=== PATIENT | female | born 1980 | race Caucasian/White ===

== ENCOUNTER 2020-08-08 09:45 | Emergency (ER) | payer OTHER, SELFPAY ==
[2020-08-08 09:58] VITALS: BP 121/85; PULSE 84; RESP 16; TEMP 36.8; O2SAT 96; BMI 37.1
--- NOTE | 2020-08-08 10:11 | ED.HA ---
HPI - Headache General Chief Complaint: Headache Stated Complaint: migraine for 4 days Time Seen by Provider: 08/08/20 10:06 Source: patient Mode of arrival: ambulatory Limitations: no limitations History of Present Illness HPI Narrative: 39 y/o female with history of migraines presenting with 5 days of migraine headache. She states she has been taking her sumatriptain without improvement. She is now nauseated and vomiting from the pain. She has had headaches this severe in the past but not for a few years. She reports photophobia and sensitivity to sound. She had an aura prior to it starting. She reports mild dizziness intermittently. She walks with a steady gait. MD elicited complaint: migraine Pertinent past history: migraines Onset (ago): day(s) (5) Onset description: gradually Location: right and frontal Severity: severe Quality & Timing: aching and constant Exacerbating factors: exertion, light and noise Relieving factors: dark room Context: occurred with exertion/activity Associated symptoms: nausea and vomiting Treatments prior to arrival: none Related Data Previous Rx's Medication Instructions Recorded [id number]-zdksunttiipyh-[id number] 1 cap PO Q4-6H PRN #20 cap 08/08/20 [Fioricet] ondansetron HCl [Zofran] 4 mg PO Q8H PRN #14 tab 08/08/20 Allergies Allergy/AdvReac Type Severity Reaction Status Date / Time No Known Allergies Allergy Unverified 07/07/20 17:34 [No Known Allergies*] Review of Systems Review of Systems: Constitutional: No Fever, + Chills ENT/Mouth: No sore throat, No Rhinorrhea, No Swallowing Difficulty Eyes: + right Eye Pain, No Swelling, No Redness Cardiovascular: No Chest Pain, No SOB, No Orthopnea, No Edema Respiratory: No Cough, No Sputum, No Wheezing, No dyspnea Gastrointestinal: + Nausea, + Vomiting, No Diarrhea, No abdominal Pain Genitourinary: No Dysuria, No Urinary Frequency, No Hematuria Musculoskeletal: No joint pain, No Myalgias Skin: No Skin Lesions, No rash Neuro: No Weakness, No Numbness, + Dizziness, + Headache Psych: No Anxiety/Panic, No Depression Heme/Lymph: No Bruising, No Lymphadenopathy Endocrine: No Polyuria, No Polydipsia PMFSH Past Medical History Attestation statement: The following information was validated with the patient. Medical History Diabetes Migraine Surgical History (Updated 08/08/20 @ 10:02 by Dee Anderson) Hx of cholecystectomy Social History Social History Alcohol intake: never Smoking Status: Never smoker Use of substances other than those prescribed or required for medical reasons: No Advance Directives: No Advance Directives Information Provided: No Physical Exam Vital Signs: Vital Signs: Vital Signs Temp Pulse Resp BP Pulse Ox 08/08/20 12:15 83 16 96/65 98 08/08/20 09:58 98.3 F 84 16 121/85 96 Body Mass Index 37.1 Appearance: Alert. Oriented X3. appears in pain. Eyes: Pupils equal, round and reactive to light. ENT: Pharynx normal. Neck: Normal inspection. Neck supple. CVS: Normal heart rate and rhythm. Pulses normal. Respiratory: No respiratory distress. Breath sounds normal. Abdomen: Soft and nontender. obese. +BS x4 Skin: Skin warm and dry. Normal skin color. Normal skin turgor. No rashes. Extremities: No lower extremity edema. Neuro: Oriented X 3. No motor deficit. No sensory deficit. Course Course Course Narrative: 39 y/o here with migraine headache associated with N/V. Will give toradol, benaryl and reglan. She has gotten these medications before per her report with improvement in her headache. Neuro exam is intact. Low suspicion for ICH, CVA, tumor. Will reassess after medicated. Reevaluation(s) Reevaluation #1: headache improved. continues to report some nausea. Zofran ordered. Reevaluation #2: patient feels improved. stable for discharge. MDM - Headache Differential Diagnosis Differential diagnosis: Likely migraine, tension headache, headache and sinusitis Medical Records Attestation: I reviewed the patient's medical records. Discharge Plan Discharge Clinical Impression: Migraine Qualifiers: Migraine type: with aura Status migrainosus presence: with status migrainosus Intractability: not intractable Qualified Code(s): G43.101 - Migraine with aura, not intractable, with status migrainosus Patient Disposition: Home, Self-Care Instructions: Migraine Headache (ED) Additional Instructions: Avoid bright light and noise, minimize screen time. Stay hydrated. If your headache worsens come back to the ER for further evaluation. Follow up with your Primary Care Doctor this week. Recommend follow up with Neurologist or Headache Specialist if no improvement. Prescriptions: New ondansetron HCl [Zofran] 4 mg tablet 4 mg PO Q8H PRN (Reason: nausea and vomiting) Qty: 14 RF: 0 [id number]-tibocchxmxyes-feij [Fioricet] 50-300-40 mg capsule 1 cap PO Q4-6H PRN (Reason: headache ) Qty: 20 RF: 0 Referrals: Seven Lebron MD [Physician] - 2 days
[2020-08-08] MEDS: 0.9 % Sodium Chloride 1,000 ML 999 ML IVCONT (10:38)
[2020-08-08] MEDS: Metoclopramide HCl 10 MG/2 ML VIAL IVPUSH (10:39)
[2020-08-08] MEDS: Ketorolac Tromethamine 30 MG/ML VIAL IVPUSH (10:39)
[2020-08-08] MEDS: diphenhydrAMINE HCL 50 MG/ML VIAL 25 MG IVPUSH (10:39)
--- NOTE | 2020-08-08 10:42 | PC.NURSE ---
PT MEDICATED FOR HER HEADACHE PER MD ORDERS, PAIN AT 9/10, LIGHT SENSITIVITY, LIGHTS OFF IN THE ROOM AT THIS TIME, ALL NURO INTACT
--- NOTE | 2020-08-08 11:30 | PC.NURSE ---
PT REPORTS THAT HER HEADACHE IMPROVED PAIN AT 5/10 BUT STILL HAVING SOME NAUSEA
[2020-08-08] MEDS: ondansetron HCL 4 MG/2 ML VIAL IVPUSH (12:14)
[2020-08-08 12:15] VITALS: BP 96/65; PULSE 83; RESP 16; O2SAT 98
== END 2020-08-08 13:09 | disposition home or self-care (01) ==
PROVIDERS: Emergency Provider Emergency Medicine
DX: G43.101 Migraine with aura, not intractable, with status migrainosus (principal); Z79.899 Other long term (current) drug therapy
CPT/HCPCS: 96361; 96374; 96375; 99284; J1200; J1885; J2405; J2765

== ENCOUNTER 2020-10-24 10:09 | Outpatient (REF) | payer OTHER, SELFPAY | END 2020-10-24 10:10 | disposition home or self-care (01) | LOC: HO.LAB 10:09 | PROVIDERS: Visit Provider Internal Medicine | DX: Z20.828 Contact with and (suspected) exposure to other viral communicable diseases (principal) | CPT/HCPCS: 36415; C9803; U0003 ==

== ENCOUNTER 2021-05-19 08:32 | Emergency (ER) | payer OTHER, SELFPAY ==
[2021-05-19 08:40] VITALS: BP 129/87; PULSE 76; RESP 20; TEMP 35.5; O2SAT 98; BMI 37.9
--- NOTE | 2021-05-19 09:27 | ED.HA ---
HPI - Headache General Chief Complaint: Headache Stated Complaint: headache Time Seen by Provider: 05/19/21 09:21 Source: patient Mode of arrival: ambulatory Limitations: no limitations History of Present Illness HPI Narrative: Patient comes emergency room complaining of a migraine headache that has been present for 5 days. Patient states she has tried Fioricet, Excedrin, Tylenol with no relief. Patient also complaining of nausea, no vomiting or diarrhea. Patient states that she has been under a lot of stress, states she lost her son 2 months ago. Patient denies any visual changes or neurological deficits Related Data Previous Rx's Medication Instructions Recorded zqfsckpblh-zdtlxyeljaedy-uqywkrae 1 cap PO Q4-6H PRN #20 cap 08/08/20 50 mg-300 mg-40 mg capsule (Fioricet) ondansetron HCl 4 mg tablet 4 mg PO Q8H PRN #14 tab 08/08/20 (Zofran) ketorolac 10 mg tablet 10 mg PO TID PRN 5 Days #7 tab 05/19/21 ondansetron HCl 4 mg tablet 4 mg PO Q6H PRN #10 tab 05/19/21 (Zofran) sumatriptan succinate 50 mg tablet 50 mg PO Q2-4H PRN #10 tab 05/19/21 Allergies Allergy/AdvReac Type Severity Reaction Status Date / Time No Known Allergies Allergy Unverified 07/07/20 17:34 [No Known Allergies*] Review of Systems Review of Systems: Constitutional : No Weight loss, No Fever, No Chills, No Night Sweats, No Fatigue, No Malaise ENT/Mouth : No Hearing loss, No Ear Pain, No Nasal Congestion, No Sinus Pain, No Hoarseness, No sore throat, No Rhinorrhea, No Swallowing Difficulty Eyes: No Eye Pain, No Swelling, No Redness, No Foreign Body, No Discharge, No Vision Changes Cardiovascular : No Chest Pain, No SOB, No Dyspnea on Exertion, No Orthopnea, No Edema, No Palpitations Respiratory : No Cough, No Sputum, No Wheezing, No Smoke Exposure, No Dyspnea Gastrointestinal : No Nausea, No Vomiting, No Diarrhea, No Constipation, No abdominal Pain, No Hematochezia, No Melena Genitourinary : no irregular bleeding, No Dysuria, No Urinary Frequency, No Hematuria, No Urinary Incontinence, No Urgency, No Flank Pain, No Urinary Flow Changes, No Hesitancy Musculoskeletal : No joint pain, No Myalgias, No Joint Swelling Skin : No Skin Lesions, No rash Neuro : No Weakness, No Numbness, No Paresthesias, No Loss of Consciousness, No Dizziness, complaining of a constant migraine headache Psych : No Anxiety/Panic, No Depression, No SI/HI/AH/VH, No Social Issues, Heme/Lymph: No Bruising, No Bleeding,No Lymphadenopathy Endocrine : No Polyuria, No Polydipsia, No Temperature Intolerance [facility] Past Medical History Medical History Diabetes Migraine Surgical History Hx of cholecystectomy Social History Social History Alcohol intake: never Smoked in Last 30 Days: No Use of substances other than those prescribed or required for medical reasons: No Advance Directives: No Advance Directives Information Provided: No Physical Exam Vital Signs: Vital Signs: Last Vital Signs Temp 95.9 F L 05/19/21 08:40 Pulse 76 05/19/21 08:40 Resp 20 05/19/21 08:40 BP 129/87 05/19/21 08:40 Pulse Ox 98 05/19/21 08:40 Body Mass Index 37.9 Const: Other: Appearance: Alert. Oriented X3. No acute distress. Eyes: Pupils equal, round and reactive to light. Does not seem to have photophobia ENT: Pharynx normal. Neck: Normal inspection. Neck supple. No lymph nodes noted. No crepitus CVS: Normal heart rate and rhythm. Pulses normal. Normal S1 and S2 Respiratory: No respiratory distress. Breath sounds normal. No Wheezing. No rales Abdomen: Soft and nontender. No rigidity. No distention. Skin: Skin warm and dry. Normal skin color. Normal skin turgor. Extremities: No lower extremity edema. No Lacerations. No Rash Neuro: Oriented X 3. No motor deficit. No sensory deficit. Moving all extermities. No slurred speech. Ambulatory, steady gait. Course Course Course Narrative: Patient states that the headache is improving. No longer nauseous. States she has residual headache but overall feeling much better. Patient requesting a prescription of sumatriptan, run out of her medication yesterday. Patient declined 1 dose of sumatriptan here, states it makes her very sleepy. Discharge Plan Discharge Clinical Impression: Migraine Qualifiers: Migraine type: unspecified Status migrainosus presence: without status migrainosus Intractability: not intractable Qualified Code(s): G43.909 - Migraine, unspecified, not intractable, without status migrainosus Patient Disposition: Home, Self-Care Instructions: Migraine Headache (ED) Additional Instructions: Please follow-up with your primary care physician tomorrow. If you have any worsening or new symptoms, please return to the emergency room or call 911 Prescriptions: New sumatriptan succinate 50 mg tablet 50 mg PO Q2-4H PRN (Reason: migraine headache) Qty: 10 RF: 0 ketorolac 10 mg tablet 10 mg PO TID PRN (Reason: pain) 5 Days Qty: 7 RF: 0 ondansetron HCl [Zofran] 4 mg tablet 4 mg PO Q6H PRN (Reason: nausea and vomiting) Qty: 10 RF: 0 No Action ondansetron HCl [Zofran] 4 mg tablet 4 mg PO Q8H PRN (Reason: nausea and vomiting) Qty: 14 RF: 0 fpcfhqgyvc-znsgozkgixgmw-oyoo [Fioricet] 50-300-40 mg capsule 1 cap PO Q4-6H PRN (Reason: headache ) Qty: 20 RF: 0
[2021-05-19] MEDS: 0.9 % Sodium Chloride 1,000 ML 999 ML IVCONT (09:45)
[2021-05-19] MEDS: Metoclopramide HCl 10 MG/2 ML VIAL IVPUSH (09:45)
[2021-05-19] MEDS: diphenhydrAMINE HCL 50 MG/ML VIAL IVPUSH (09:45)
[2021-05-19] MEDS: Ketorolac Tromethamine 15 MG/ML VIAL 30 MG IVPUSH (09:45)
== END 2021-05-19 10:49 | disposition home or self-care (01) ==
PROVIDERS: Emergency Provider Emergency Medicine; PCP Internal Medicine
DX: G43.909 Migraine, unspecified, not intractable, without status migrainosus (principal); E11.9 Type 2 diabetes mellitus without complications; Z72.89 Other problems related to lifestyle; Z63.4 Disappearance and death of family member
CPT/HCPCS: 96361; 96374; 96375; 99284; J1200; J1885; J2765

== ENCOUNTER 2022-10-29 09:35 | Emergency (ER) | payer OTHER, SELFPAY ==
[2022-10-29 09:39] VITALS: BP 143/94; PULSE 97; RESP 18; TEMP 36.6; O2SAT 97; BMI 38.0
--- NOTE | 2022-10-29 10:46 | PC.NURSE ---
41 y/o F c/o migraine, nausea, and vomitting. pt states she has also not been able to maintain her blood sugar. pt is aox3, calm and cooperative, VSS at this time. awaiting MD archibald
[2022-10-29 10:47] VITALS: BP 133/82; PULSE 97; RESP 16; TEMP 37.7; O2SAT 96
[2022-10-29 10:53] LABS: Glucose, Whole Blood 101 mg/dL (60-115)
--- NOTE | 2022-10-29 11:47 | ECG_ITS ---
Test Reason : HEADACHE/NAUSEA Blood Pressure : / mmHG Vent. Rate : 092 BPM Atrial Rate : 092 BPM P-R Int : 166 ms QRS Dur : 084 ms QT Int : 402 ms P-R-T Axes : 030 054 036 degrees QTc Int : 497 ms Normal sinus rhythm Prolonged QT Abnormal ECG No previous ECGs available Referred By: Manan Grewal Electronically Signed By:Sohail Aaron
--- NOTE | 2022-10-29 11:49 | ED_ITS ---
HPI - General Adult General Chief complaint: Nausea/Vomiting/Diarrhea Stated complaint: Migraine/Low blood sugar Time Seen by Provider: 10/29/22 11:33 Source: patient Mode of arrival: ambulatory Limitations: no limitations History of Present Illness HPI narrative: 41-year-old with history of migraine presents to ED for headache, nausea, and vomitting. Patient states no relief with a migraine medication. Patient denies any abdominal pain, dysuria, hematuria, vaginal discharge, or vaginal bleeding. Patient states her glucose has been low. Patient history of diabetes and baseline her glucose is around 156. Patient states due to her having continuous vomiting from the migraine and unable to keep fluids and food down her glucose will drop to 90s. Patient denies having any seizure. Patient denies any chest pain or shortness of breath Related Data Previous Rx's Medication Instructions Recorded sjtzsderxd-onpjvkuvkqdvn-ldeuneyx 1 cap PO Q4-6H PRN headache #20 08/08/20 50 mg-300 mg-40 mg capsule caps (Fioricet) ondansetron HCl 4 mg tablet 4 mg PO Q8H PRN nausea and 08/08/20 (Zofran) vomiting #14 tabs ketorolac 10 mg tablet 10 mg PO TID PRN pain 5 days #7 05/19/21 tabs ondansetron HCl 4 mg tablet 4 mg PO Q6H PRN nausea and 05/19/21 (Zofran) vomiting #10 tabs sumatriptan succinate 50 mg tablet 50 mg PO Q2-4H PRN migraine 05/19/21 headache #10 tabs zolmitriptan 2.5 mg tablet (Zomig) 2.5 mg PO Q2-4H PRN migraine 05/19/21 headache #10 tabs yjuhfvmxwt-kjyxsjtalhted-shblpqxe 1 cap PO Q6H PRN pain 5 days #20 10/29/22 50 mg-300 mg-40 mg capsule caps (Fioricet) ketorolac 10 mg tablet 10 mg PO QID PRN pain 5 days #20 10/29/22 tabs metoclopramide HCl 10 mg tablet 10 mg PO Q6H PRN nausea and 10/29/22 (Reglan) vomiting 4 days #12 tabs Allergies Allergy/AdvReac Type Severity Reaction Status Date / Time No Known Allergies Allergy Unverified 07/07/20 17:34 [No Known Allergies*] Review of Systems Review of Systems: Migraine exacerbation. Yes all other systems are reviewed and are negative [facility] Past Medical History Medical History Diabetes Migraine Surgical History Hx of cholecystectomy Social History Social History Alcohol intake: never Smoked in Last 30 Days: No Advance Directives: Yes Advance Directives on File: No Physical Exam ED Vital Signs: Vital Signs - 24 hr 10/29/22 09:39 10/29/22 10:47 10/29/22 15:07 Temperature 98 F 99.8 F 98.1 F Pulse Rate 97 97 86 Respiratory Rate 18 16 17 Blood Pressure 143/94 H 133/82 106/56 L Pulse Oximetry 97 96 98 Oxygen Delivery Method Room Air Room Air Room Air 10/29/22 16:35 Temperature Pulse Rate 92 Respiratory Rate 12 Blood Pressure 99/68 Pulse Oximetry 98 Oxygen Delivery Method Room Air BMI result Body Mass Index 38.0 Const General: cooperative, healthy appearing, comfortable, no acute distress, well developed, alert and awake Orientation/consciousness: oriented to person, oriented to place, oriented to time and patient oriented x3 HENMT Head: Yes normal to inspection, Yes No palpable skull fracture present, Yes normocephalic, Yes atraumatic and No abrasion Eyes Other: Positive photophobia General: appearance normal, both eyes and all related structures Neck Neck: Yes normal visual inspection, Yes full ROM, Yes no lymphadenopathy, Yes no meningeal signs, Yes trachea midline, Yes supple, No anterior neck swelling and No tender Chest Chest palpation & inspection: normal inspection of the chest and normal palpation of entire chest wall Resp Effort & Inspection: normal respiratory effort and able to speak in complete sentences Auscultation: clear to auscultation bilaterally Cardio Jugular venous distension: no JVD Heart sounds: S1 normal heart sound present and S2 normal heart sound present GI Inspection: Yes normal to inspection and No abdominal wall ecchymosis Palpation (GI): Soft to palpation, not firm, nontender, no guarding and not rigid General: No CVA tenderness and Yes no CVA tenderness Back/Spine/Pelvis Back: no CVA tenderness, No CVA tenderness and No back tenderness Skin General skin exam: no rashes or lesions noted and elasticity normal Neuro Other: Negative for any neuro deficits. General: oriented to person, oriented to place, oriented to time, patient oriented x3, gait normal, tone normal, moves all extremities, Normal light touch and pain sensation, no meningeal signs, no focal motor deficits, CN's II-XI intact bilaterally and normal sensation to monofilament Extrem General: Yes normal to inspection and Yes full ROM Psych Appearance: grossly normal, well kempt and not disheveled Course Course Course Narrative: History physical exam indicate more migraine pain due to patient did states she is diabetic and over 40 will do Stuart EKG cardiac labs such as troponin. Negative for meningeal signs. Will order migraine IV cocktail with fluids for Reevaluation(s) Reevaluation #1: EKG negative STEMI. Troponin negative after having symptoms since Saturday. No need for head CT scan patient states having her usual migraine exacerbation and no new trauma or any neuro deficits. Not suspecting meningitis patient does not have any neck stiffness or any other meningeal sign. Not suspecting brain mass or bleeding. Patient denies blood thinners. no trauma or neuro deficits. Pending magnesium due to QTC 497. Patient states she feels better and no longer have photophobia/headache and is eating food. Patient given Decadron, Toradol, Reglan, similar triptans, and Fioricet. Glucose stayed stable throughout ED visit Time: 16:09 Reevaluation #2: magneisum normal Medications Administered Discontinued Medications Generic Name Dose Route Start Last Admin Trade Name Freq PRN Reason Stop Dose Admin Acetaminophen/Butalbital/Caffeine 2 tab 10/29/22 14:02 10/29/22 14:15 Butalb/Acetamin/Caff 50/325/40 Tablet PO 10/29/22 14:03 2 tab ONCE ONE Administration Dexamethasone Sodium Phosphate 10 mg 10/29/22 14:02 10/29/22 14:16 Dexamethasone Sod Phosphate 10 Mg/Ml Vial IVPUSH 10/29/22 14:03 10 mg ONCE ONE Administration Diphenhydramine HCl 50 mg 10/29/22 11:45 10/29/22 12:02 Diphenhydramine Hcl 50 Mg/Ml Vial IVPUSH 10/29/22 11:46 50 mg ONCE ONE Administration Sodium Chloride 1,000 mls @ 999 mls/hr 10/29/22 11:45 10/29/22 12:13 Ns IV 10/29/22 12:45 Infused .Q1H1M STA Infusion Ketorolac Tromethamine 30 mg 10/29/22 11:45 10/29/22 12:02 Ketorolac Tromethamine 30 Mg/Ml Vial IVPUSH 10/29/22 11:46 30 mg ONCE ONE Administration Metoclopramide HCl 10 mg 10/29/22 11:45 10/29/22 12:02 Metoclopramide Hcl 10 Mg/2 Ml Vial IVPUSH 10/29/22 11:46 10 mg ONCE ONE Administration Sumatriptan Succinate 6 mg 10/29/22 14:04 10/29/22 14:15 Sumatriptan Succinate 6 Mg/0.5 Ml Vial SUBCUT 10/29/22 14:05 6 mg ONCE ONE Administration Medical Decision Making Medical Decision Making [facility] Narrative: 41-year-old female with migraine exacerbation described headache, nausea, vomiting, and photophobia. Negative for neck stiffness fever, or chills. Negative for any new trauma. Due to patient being diabetic and H will do cardiac evaluation. Differential Diagnosis Differential Diagnoses: The differential diagnosis associated with the presentation includes (Cardiac, migraine exacerbation) Admission/Observation If patient worsens her med medical admission for today patient will be observed or admitted. Recently no admission needed Consult Healthcare Provider No further consultation needed. Lab Data [facility] Lab Attestation statement: I reviewed the patient's lab results. 10/29/22 12:05 10/29/22 12:05 Labs: Lab Results 10/29/22 10/29/22 10/29/22 Range/Units 10:50 12:05 12:05 WBC 10.5 (4.8-10.8) X10*3/uL RBC 5.52 H (4.20-5.50) X10*6/uL Hgb 16.1 H (12.0-16.0) g/dl Hct 46.7 (37.0-47.0) % MCV 84.6 (80.0-98.0) fL MCH 29.2 (27.0-33.0) pg MCHC 34.5 (31.0-35.0) g/dl RDW 12.3 (11.0-16.0) % Plt Count 406 H (160-400) X10*3/uL MPV 9.1 L (9.4-12.3) fL Immature Gran % (Auto) 0.2 (0.0-0.4) % Neut % (Auto) 76.0 H (45-73) % Lymph % (Auto) 16.8 L (20-40) % Winston % (Auto) 5.6 (2-11) % Eos % (Auto) 1.1 (0-4) % Baso % (Auto) 0.3 (0-2) % Lymph # (Auto) 1.8 (1.2-4.9) X10*3/uL Winston # (Auto) 0.6 (0.1-1.2) X10*3/uL Eos # (Auto) 0.1 (0.0-0.4) X10*3/uL Baso # (Auto) 0.0 (0.0-0.2) X10*3/uL Abs Immat Gran (auto) 0.02 (0.00-0.03) X10*3/uL Absolute Neuts (auto) 7.9 (2.0-8.3) x10*3/uL Absolute Nucleated RBC 0.000 (0.0-0.012) X10*3/uL Nucleated RBC % (auto) 0.0 (0.0-0.2) /100WBC PT (10.0-13.1) SEC INR (0.9-1.1) APTT (26.0-36.4) SEC Sodium (135-145) mmol/L Potassium (3.3-5.1) mmol/L Chloride (96-108) mmol/L Carbon Dioxide (22-29) mmol/L Anion Gap (12-20) BUN (9-16) mg/dL Creatinine (0.5-1.4) mg/dL Estim Creat Clear Calc Estimated GFR POC Glucose 101 (60-115) mg/dL Random Glucose (60-115) mg/dL Calcium (8.4-10.2) mg/dL Magnesium (1.6-2.6) mg/dL Total Bilirubin (0.0-1.0) mg/dL AST (5-31) U/L ALT (0-31) U/L Alkaline Phosphatase (39-117) U/L Troponin I High Sens (<3.5-17.0) ng/L Total Protein (6.5-8.0) g/dL Albumin (3.5-5.0) g/dL Influenza Type A (PCR) NEGATIVE (Negative) Influenza Type B (PCR) NEGATIVE (Negative) RSV RNA Qual (PCR) NEGATIVE (Negative) SARS-CoV-2 RNA (RT-PCR) NEGATIVE (Negative) 10/29/22 10/29/22 10/29/22 Range/Units 12:05 12:05 12:05 WBC (4.8-10.8) X10*3/uL RBC (4.20-5.50) X10*6/uL Hgb (12.0-16.0) g/dl Hct (37.0-47.0) % MCV (80.0-98.0) fL MCH (27.0-33.0) pg MCHC (31.0-35.0) g/dl RDW (11.0-16.0) % Plt Count (160-400) X10*3/uL MPV (9.4-12.3) fL Immature Gran % (Auto) (0.0-0.4) % Neut % (Auto) (45-73) % Lymph % (Auto) (20-40) % Winston % (Auto) (2-11) % Eos % (Auto) (0-4) % Baso % (Auto) (0-2) % Lymph # (Auto) (1.2-4.9) X10*3/uL Winston # (Auto) (0.1-1.2) X10*3/uL Eos # (Auto) (0.0-0.4) X10*3/uL Baso # (Auto) (0.0-0.2) X10*3/uL Abs Immat Gran (auto) (0.00-0.03) X10*3/uL Absolute Neuts (auto) (2.0-8.3) x10*3/uL Absolute Nucleated RBC (0.0-0.012) X10*3/uL Nucleated RBC % (auto) (0.0-0.2) /100WBC PT 12.8 (10.0-13.1) SEC INR 1.1 (0.9-1.1) APTT 34.8 (26.0-36.4) SEC Sodium 137 (135-145) mmol/L Potassium 3.3 (3.3-5.1) mmol/L Chloride 109 H (96-108) mmol/L Carbon Dioxide 19 L (22-29) mmol/L Anion Gap 12 (12-20) BUN 11 (9-16) mg/dL Creatinine 0.61 (0.5-1.4) mg/dL Estim Creat Clear Calc 150.2 Estimated GFR > 60 POC Glucose (60-115) mg/dL Random Glucose 81 (60-115) mg/dL Calcium 8.3 L (8.4-10.2) mg/dL Magnesium 2.2 (1.6-2.6) mg/dL Total Bilirubin 2.1 H (0.0-1.0) mg/dL AST 18 (5-31) U/L ALT 20 (0-31) U/L Alkaline Phosphatase 66 (39-117) U/L Troponin I High Sens < 3.5 (<3.5-17.0) ng/L Total Protein 6.5 (6.5-8.0) g/dL Albumin 4.0 (3.5-5.0) g/dL Influenza Type A (PCR) (Negative) Influenza Type B (PCR) (Negative) RSV RNA Qual (PCR) (Negative) SARS-CoV-2 RNA (RT-PCR) (Negative) 10/29/22 Range/Units 14:26 WBC (4.8-10.8) X10*3/uL RBC (4.20-5.50) X10*6/uL Hgb (12.0-16.0) g/dl Hct (37.0-47.0) % MCV (80.0-98.0) fL MCH (27.0-33.0) pg MCHC (31.0-35.0) g/dl RDW (11.0-16.0) % Plt Count (160-400) X10*3/uL MPV (9.4-12.3) fL Immature Gran % (Auto) (0.0-0.4) % Neut % (Auto) (45-73) % Lymph % (Auto) (20-40) % Winston % (Auto) (2-11) % Eos % (Auto) (0-4) % Baso % (Auto) (0-2) % Lymph # (Auto) (1.2-4.9) X10*3/uL Winston # (Auto) (0.1-1.2) X10*3/uL Eos # (Auto) (0.0-0.4) X10*3/uL Baso # (Auto) (0.0-0.2) X10*3/uL Abs Immat Gran (auto) (0.00-0.03) X10*3/uL Absolute Neuts (auto) (2.0-8.3) x10*3/uL Absolute Nucleated RBC (0.0-0.012) X10*3/uL Nucleated RBC % (auto) (0.0-0.2) /100WBC PT (10.0-13.1) SEC INR (0.9-1.1) APTT (26.0-36.4) SEC Sodium (135-145) mmol/L Potassium (3.3-5.1) mmol/L Chloride (96-108) mmol/L Carbon Dioxide (22-29) mmol/L Anion Gap (12-20) BUN (9-16) mg/dL Creatinine (0.5-1.4) mg/dL Estim Creat Clear Calc Estimated GFR POC Glucose 70 (60-115) mg/dL Random Glucose (60-115) mg/dL Calcium (8.4-10.2) mg/dL Magnesium (1.6-2.6) mg/dL Total Bilirubin (0.0-1.0) mg/dL AST (5-31) U/L ALT (0-31) U/L Alkaline Phosphatase (39-117) U/L Troponin I High Sens (<3.5-17.0) ng/L Total Protein (6.5-8.0) g/dL Albumin (3.5-5.0) g/dL Influenza Type A (PCR) (Negative) Influenza Type B (PCR) (Negative) RSV RNA Qual (PCR) (Negative) SARS-CoV-2 RNA (RT-PCR) (Negative) Independent Interpretation I performed an independent interpretation of an: EKG Interpretation: Normal sinus rhythm. Ventricular rate 92. Pr interval 166. QRS 84. QTC 497. Negative Stemi Radiology Impression Radiologist Impression: No imaging needed. Prescription Management I considered prescription management with: Other (Fioricet and Reglan) Chronic Conditions Patient?s care impacted by: Diabetes and Other (Migraine) Discharge Plan Discharge Clinical Impression: Migraine Patient Disposition: Home, Self-Care Instructions: Migraine Headache (ED) Additional Instructions: Recommend follow-up with your neurologist and PCP for migraine exacerbation. Return to the ED immediately for any neck stiffness, paralysis of extremities, slurred speech, facial droop, nausea, vomiting, fever, chills, chest pain, shortness of breath, or any other concerning symptoms. Continue with your migraine meds at home you already have. Do not take any other NSAIDS ( motin, ibuprofen, naproxen, alleve, etc) while taking Ketoralac. Prescriptions: New bwfgopghjv-outywkijjqdki-mqic [Fioricet] 50-300-40 mg capsule 1 cap PO Q6H PRN (Reason: pain) 5 Days Qty: 20 0RF metoclopramide HCl [Reglan] 10 mg tablet 10 mg PO Q6H PRN (Reason: nausea and vomiting) 4 Days Qty: 12 0RF ketorolac 10 mg tablet 10 mg PO QID PRN (Reason: pain) 5 Days Qty: 20 0RF Rx Instructions: received toradol 3mg IV in the ED No Action sumatriptan succinate 50 mg tablet 50 mg PO Q2-4H PRN (Reason: migraine headache) Qty: 10 0RF Rx Instructions: do not exceed 4 doses per 24 hrs ketorolac 10 mg tablet 10 mg PO TID PRN (Reason: pain) 5 Days Qty: 7 0RF Rx Instructions: Do not take ibuprofen/Motrin with medication, only use sumatriptan or Tylenol if needed ondansetron HCl [Zofran] 4 mg tablet 4 mg PO Q6H PRN (Reason: nausea and vomiting) Qty: 10 0RF zolmitriptan [Zomig] 2.5 mg tablet 2.5 mg PO Q2-4H PRN (Reason: migraine headache) Qty: 10 0RF Rx Instructions: do not exceed 4 doses per 24 hrs ondansetron HCl [Zofran] 4 mg tablet 4 mg PO Q8H PRN (Reason: nausea and vomiting) Qty: 14 0RF xvxmldwcyn-wkafewshaolkd-rolx [Fioricet] 50-300-40 mg capsule 1 cap PO Q4-6H PRN (Reason: headache ) Qty: 20 0RF Interventions: ED Discharge Assessment Last Done: 10/29/22 17:23 Discharge Date/Time: 10/29/22 17:25 Print Language: Lithuanian
[2022-10-29] MEDS: 0.9 % Sodium Chloride 1,000 ML 999 ML IV (12:02)
[2022-10-29] MEDS: Ketorolac Tromethamine 30 MG/ML VIAL IVPUSH (12:02)
[2022-10-29] MEDS: diphenhydrAMINE HCL 50 MG/ML VIAL IVPUSH (12:02)
[2022-10-29] MEDS: Metoclopramide HCl 10 MG/2 ML VIAL IVPUSH (12:02)
[2022-10-29 12:15] LABS: MANUAL DIFF FLAG NO
[2022-10-29 12:20] LABS: Basophils Percent Auto 0.3 % (0-2); Eosinophils Absolute Auto 0.1 X10*3/uL (0.0-0.4); Eosinophils Percent Auto 1.1 % (0-4); Hematocrit 46.7 % (37.0-47.0); Hemoglobin 16.1 g/dl (12.0-16.0); Imm Gran Abs Auto 0.02 X10*3/uL (0.00-0.03); Imm Gran Pct Auto 0.2 % (0.0-0.4); Lymphocytes Absolute Auto 1.8 X10*3/uL (1.2-4.9); Lymphocytes Percent Auto 16.8 % (20-40); Mean Corpuscular HGB Conc 34.5 g/dl (31.0-35.0); Mean Corpuscular Hemoglobin 29.2 pg (27.0-33.0); Mean Corpuscular Volume 84.6 fL (80.0-98.0); Mean Platelet Volume 9.1 fL (9.4-12.3); Monocytes Absolute Auto 0.6 X10*3/uL (0.1-1.2); Monocytes Percent Auto 5.6 % (2-11); Neutrophils Absolute Auto 7.9 x10*3/uL (2.0-8.3); Platelet Count 406 X10*3/uL (160-400); Red Blood Count 5.52 X10*6/uL (4.20-5.50); Red Cell Distribution Width 12.3 % (11.0-16.0); White Blood Count 10.5 X10*3/uL (4.8-10.8)
[2022-10-29 12:26] LABS: INTERNATIONAL NORM RATIO 1.1 (0.9-1.1); Prothrombin Time 12.8 SEC (10.0-13.1)
[2022-10-29 12:28] LABS: Partial Thromboplastin Time 34.8 SEC (26.0-36.4)
[2022-10-29 12:39] LABS: Alanine Aminotransferase 20 U/L (0-31); Alkaline Phosphatase 66 U/L (39-117); Anion Gap 12 (12-20); Aspartate Amino Transferase 18 U/L (5-31); Bilirubin Total 2.1 mg/dL (0.0-1.0); Blood Urea Nitrogen 11 mg/dL (9-16); Calcium 8.3 mg/dL (8.4-10.2); Carbon Dioxide 19 mmol/L (22-29); Chloride 109 mmol/L (96-108); Creatinine Clr Calc Pharmacy 150.2; Estimated Glomerular Filt Rate > 60; Glucose Random 81 mg/dL (60-115); Potassium 3.3 mmol/L (3.3-5.1); Sodium 137 mmol/L (135-145); Total Protein 6.5 g/dL (6.5-8.0)
[2022-10-29 12:44] LABS: Troponin-I High Sensitivity < 3.5 ng/L (<3.5-17.0)
[2022-10-29 12:56] LABS: Influenza A PCR NEGATIVE (Negative); Influenza B PCR NEGATIVE (Negative); Resp Syncy Virus RNA Qual PCR NEGATIVE (Negative); SARS COV2 PCR INHOUSE NEGATIVE (Negative)
[2022-10-29] MEDS: Butalb/Acetamin/Caff 50/325/40 TABLET 2 TAB PO (14:15)
[2022-10-29] MEDS: SUMAtriptan succinate 6 MG/0.5 ML VIAL SUBCUT (14:15)
[2022-10-29] MEDS: dexAMETHasone sod phosphate 10 MG/ML VIAL IVPUSH (14:16)
[2022-10-29 14:30] LABS: Glucose, Whole Blood 70 mg/dL (60-115)
[2022-10-29 15:07] VITALS: BP 106/56; PULSE 86; RESP 17; TEMP 36.7; O2SAT 98
[2022-10-29 16:33] LABS: Magnesium 2.2 mg/dL (1.6-2.6)
[2022-10-29 16:35] VITALS: BP 99/68; PULSE 92; RESP 12; O2SAT 98
--- NOTE | 2022-10-29 17:25 | PC.NURSE ---
pt discharged home, ambulated out of department with steady gait
== END 2022-10-29 17:25 | disposition home or self-care (01) ==
PROVIDERS: Physician Assistant; Emergency Provider Student in an Organized Health Care Education/Training Program
DX: G43.909 Migraine, unspecified, not intractable, without status migrainosus (principal); Z20.828 Contact with and (suspected) exposure to other viral communicable diseases; Z20.822 Contact with and (suspected) exposure to COVID-19
CPT/HCPCS: 0241U; 36415; 80053; 82947; 83735; 84484; 85025; 85610; 85730; 93005; 96361; 96372; 96374; 96375; 99284; 99285; J1100; J1200; J1885; J2765; J3030

== ENCOUNTER → 2024-01-30 10:14 | Outpatient (BNVA) | payer OTHER, SELFPAY | PROVIDERS: Visit Provider Physician Assistant Surgical ==

== ENCOUNTER → 2024-03-26 08:16 | Outpatient (BNVA) | payer OTHER, SELFPAY | PROVIDERS: Visit Provider Surgery ==

== ENCOUNTER 2024-10-10 10:39 | Emergency (ER) | payer OTHER, SELFPAY ==
[2024-10-10 10:45] VITALS: BP 122/86; PULSE 97; RESP 18; TEMP 36.3; O2SAT 99; BMI 36.5
[2024-10-10 11:02] LABS: MANUAL DIFF FLAG NO
[2024-10-10 11:08] LABS: Basophils Absolute Auto 0.1 X10*3/uL (0.0-0.2); Basophils Percent Auto 0.6 % (0-2); Eosinophils Absolute Auto 0.5 X10*3/uL (0.0-0.4); Eosinophils Percent Auto 4.3 % (0-4); Hematocrit 46.3 % (37.0-47.0); Hemoglobin 16.1 g/dl (12.0-16.0); Imm Gran Abs Auto 0.02 X10*3/uL (0.00-0.03); Imm Gran Pct Auto 0.2 % (0.0-0.4); Lymphocytes Absolute Auto 2.7 X10*3/uL (1.2-4.9); Lymphocytes Percent Auto 24.7 % (20-40); Mean Corpuscular HGB Conc 34.8 g/dl (31.0-35.0); Mean Corpuscular Hemoglobin 28.9 pg (27.0-33.0); Mean Corpuscular Volume 83.1 fL (80.0-98.0); Mean Platelet Volume 9.1 fL (9.4-12.3); Monocytes Absolute Auto 0.7 X10*3/uL (0.1-1.2); Monocytes Percent Auto 6.7 % (2-11); Neutrophils Absolute Auto 6.8 x10*3/uL (2.0-8.3); Neutrophils Percent Auto 63.5 % (45-73); Platelet Count 450 X10*3/uL (160-400); Red Blood Count 5.57 X10*6/uL (4.20-5.50); Red Cell Distribution Width 12.3 % (11.0-16.0); White Blood Count 10.7 X10*3/uL (4.8-10.8)
[2024-10-10 11:19] LABS: Alanine Aminotransferase 29 U/L (0-31); Albumin Level 4.3 g/dL (3.5-5.0); Alkaline Phosphatase 55 U/L (39-117); Anion Gap 12 (12-20); Aspartate Amino Transferase 26 U/L (5-31); Bilirubin Total 1.4 mg/dL (0.0-1.0); Blood Urea Nitrogen 11 mg/dL (9-16); Calcium 8.6 mg/dL (8.4-10.2); Carbon Dioxide 22 mmol/L (22-29); Chloride 111 mmol/L (96-108); Creatinine Clr Calc Pharmacy 105.7; Estimated Glomerular Filt Rate > 60; Glucose Random 121 mg/dL (60-115); Lipase 36 U/L (8-78); Magnesium 2.3 mg/dL (1.6-2.6); Potassium 3.8 mmol/L (3.3-5.1); Sodium 141 mmol/L (135-145); Total Protein 7.6 g/dL (6.5-8.0)
--- NOTE | 2024-10-10 11:54 | ED.GENADULT ---
HPI - General Adult General Chief complaint: Nausea/Vomiting/Diarrhea Stated complaint: vomiting Time Seen by Provider: 10/10/24 11:54 Source: patient Mode of arrival: ambulatory Limitations: no limitations History of Present Illness ED Provider: Esteban MATTHEWS narrative: Patient is a 43-year-old female presenting to the emergency department with complaint of nausea and vomiting since Saturday. States she had a telehealth visit on Saturday and was prescribed Zofran with little relief of nausea and vomiting. She went to a physical with her PCP on Saturday and was prescribed Reglan, also did not experience any relief with this medication. States she has not been able to tolerate any p.o. fluids. She denies any diarrhea. Denies any hematemesis. Denies fevers. MD complaint: nausea and vomiting Onset (ago): day(s) Treatments prior to arrival: other Related Data Previous Rx's ?Medication ?Instructions ?Recorded yttnlafgcv-fiibsfrwhcrhw-ajrqsqvs 1 cap PO Q4-6H PRN headache #20 08/08/20 50 mg-300 mg-40 mg capsule caps (Fioricet) ondansetron HCl 4 mg tablet 4 mg PO Q8H PRN nausea and 08/08/20 (Zofran) vomiting #14 tabs ketorolac 10 mg tablet 10 mg PO TID PRN pain 5 days #7 05/19/21 tabs ondansetron HCl 4 mg tablet 4 mg PO Q6H PRN nausea and 05/19/21 (Zofran) vomiting #10 tabs sumatriptan succinate 50 mg tablet 50 mg PO Q2-4H PRN migraine 05/19/21 headache #10 tabs zolmitriptan 2.5 mg tablet (Zomig) 2.5 mg PO Q2-4H PRN migraine 05/19/21 headache #10 tabs tocuysaono-qprehcuuwazxh-qqesnxvx 1 cap PO Q6H PRN pain 5 days #20 10/29/22 50 mg-300 mg-40 mg capsule caps (Fioricet) ketorolac 10 mg tablet 10 mg PO QID PRN pain 5 days #20 10/29/22 tabs metoclopramide HCl 10 mg tablet 10 mg PO Q6H PRN nausea and 10/29/22 (Reglan) vomiting 4 days #12 tabs prochlorperazine 25 mg rectal 25 mg PA Q12H PRN nausea and 10/10/24 suppository vomiting #12 ea Allergies Allergy/AdvReac Type Severity Reaction Status Date / Time azithromycin Allergy Diarrhea Verified 10/10/24 10:47 bee pollen [bee stings] Allergy Anaphylaxis Verified 10/10/24 10:47 Review of Systems Review of Systems: As per HPI Yes all other systems are reviewed and are negative Constitutional: Constitutional: Reports as per HPI [facility] Past Medical History Medical History (Updated 10/10/24 @ 15:29 by Johana Orellana NP) Migraine Diabetes Surgical History (Updated 01/31/24 @ 08:05 by Prachi Edward CMA) Hx of endoscopy Hx of colonoscopy Hx of section Hx of cholecystectomy Social History Social History (Updated 01/31/24 @ 07:52 by Prachi Edward CMA) Alcohol intake: never Patient Tobacco Use Status: Never used Tobacco Smoked in Last 30 Days: No Use of substances other than those prescribed or required for medical reasons: No Advance Directives: No Advance Directives Information Provided: No Physical Exam ED Vital Signs: Vital Signs - 24 hr 10/10/24 10:45 10/10/24 13:49 Temperature 97.4 F 98.7 F Pulse Rate 97 92 Respiratory Rate 18 18 Blood Pressure 122/86 102/57 L Pulse Oximetry 99 100 Oxygen Delivery Method Room Air Room Air BMI result Body Mass Index 36.5 Vital signs have been reviewed and appear to be correct. Blood pressure normal. Heart rate normal. Respiratory rate normal. Temperature normal. Oxygen saturation normal. Const General: cooperative, healthy appearing and no acute distress Orientation/consciousness: oriented to person, oriented to place, oriented to time and patient oriented x3 Limitations: no limitations [facility] Head: Yes normocephalic and Yes atraumatic Ears: external ears normal General nose exam: Normal external nose present Face and sinus: Yes face symmetric Mouth: oropharynx normal and moist mucous membranes Throat: Yes uvula midline Eyes Pupils: Equal, round and reactive pupils present Neck Neck: Yes normal visual inspection and Yes supple Resp Effort & Inspection: normal respiratory effort and able to speak in complete sentences Auscultation: clear to auscultation bilaterally Cardio Rate: regular rate Rhythm: regular rhythm Heart sounds: S1 normal heart sound present and S2 normal heart sound present GI Palpation (GI): Soft to palpation and nontender Auscultation: normoactive bowel sounds General: Yes no CVA tenderness Back/Spine/Pelvis Back: no CVA tenderness Skin General skin exam: elasticity normal and turgor normal Neuro General: oriented to person, oriented to place, oriented to time, patient oriented x3, moves all extremities, no focal motor deficits and CN's II-XI intact bilaterally Cranial nerves: Yes Equal, round and reactive pupils present Cognition (Neuro): normal cognition Extrem General: Yes full ROM, Yes no pedal edema and Yes no calf tenderness Psych Mental Status: mental status grossly normal Affect: normal affect Thought process: Normal thought process present Medications Administered Discontinued Medications Generic Name Dose Route Start Last Admin Trade Name Freq PRN Reason Stop Dose Admin Diphenhydramine HCl 25 mg 10/10/24 11:55 10/10/24 12:12 Diphenhydramine Hcl 50 Mg/Ml Vial IVPUSH 10/10/24 11:56 25 mg ONCE ONE Administration Sodium Chloride 1,000 mls @ 999 mls/hr 10/10/24 12:00 10/10/24 14:41 Ns IV 10/10/24 13:00 Infused .Q1H1M RIVERA Infusion Metoclopramide HCl 10 mg 10/10/24 11:55 10/10/24 12:13 Metoclopramide Hcl 10 Mg/2 Ml Vial IVPUSH 10/10/24 11:56 10 mg ONCE ONE Administration Prochlorperazine Edisylate 10 mg 10/10/24 14:29 10/10/24 14:41 Prochlorperazine Edisylate 10 Mg/2 Ml Vial IVPUSH 10/10/24 14:30 10 mg ONCE ONE Administration Medical Decision Making Medical Decision Making [facility] Narrative: Patient is a 43-year-old female presenting to the emergency department with complaint of nausea and vomiting since Saturday. On exam patient is awake, A+Ox3, VS WNL, afebrile, normal neurological exam without focal deficits, physical exam findings as above. Given reported symptoms and physical exam findings, initial differential includes but is not limited to viral illness, COVID, flu, gastroenteritis, gastritis, GERD. Labs notable for no leukocytosis, no evidence of ROMERO, mildly elevated bilirubin. Patient is without abdominal tenderness. Plan to test for flu and COVID, IV fluids, Reglan and Benadryl ordered. Patient reports ongoing nausea after reglan/benadryl, compazine ordered. Patient reports good relief of nausea after Compazine and able to tolerate hao sindy and crackers. Feels comfortable with discharge home. Will send prescription for Compazine suppositories, discussed with patient that she needs to use only 1 antiemetic at a time and should not take the Compazine with Reglan or Benadryl combined. Return precautions discussed at bedside. Follow-up with PCP as needed. Patient verbalized understanding of and agreement with plan. Differential Diagnosis Differential Diagnoses: The differential diagnosis associated with the presentation includes as per [facility] Admission/Observation Consideration of admission/observation: Escalation of care including admission/observation considered Lab Data [facility] Lab Attestation statement: I reviewed the patient's lab results. as per [facility] 10/10/24 10:58 10/10/24 10:58 Labs: Lab Results 10/10/24 10/10/24 Range/Units 10:58 12:08 WBC 10.7 (4.8-10.8) X10*3/uL RBC 5.57 H (4.20-5.50) X10*6/uL Hgb 16.1 H (12.0-16.0) g/dl Hct 46.3 (37.0-47.0) % MCV 83.1 (80.0-98.0) fL MCH 28.9 (27.0-33.0) pg MCHC 34.8 (31.0-35.0) g/dl RDW 12.3 (11.0-16.0) % Plt Count 450 H (160-400) X10*3/uL MPV 9.1 L (9.4-12.3) fL Immature Gran % (Auto) 0.2 (0.0-0.4) % Neut % (Auto) 63.5 (45-73) % Lymph % (Auto) 24.7 (20-40) % [place] % (Auto) 6.7 (2-11) % Eos % (Auto) 4.3 H (0-4) % Baso % (Auto) 0.6 (0-2) % Lymph # (Auto) 2.7 (1.2-4.9) X10*3/uL [place] # (Auto) 0.7 (0.1-1.2) X10*3/uL Eos # (Auto) 0.5 H (0.0-0.4) X10*3/uL Baso # (Auto) 0.1 (0.0-0.2) X10*3/uL Abs Immat Gran (auto) 0.02 (0.00-0.03) X10*3/uL Absolute Neuts (auto) 6.8 (2.0-8.3) x10*3/uL Absolute Nucleated RBC 0.000 (0.0-0.012) X10*3/uL Nucleated RBC % (auto) 0.0 (0.0-0.2) /100WBC Sodium 141 (135-145) mmol/L Potassium 3.8 (3.3-5.1) mmol/L Chloride 111 H (96-108) mmol/L Carbon Dioxide 22 (22-29) mmol/L Anion Gap 12 (12-20) BUN 11 (9-16) mg/dL Creatinine 0.83 (0.5-1.4) mg/dL Estim Creat Clear Calc 105.7 Estimated GFR > 60 Random Glucose 121 H (60-115) mg/dL Calcium 8.6 (8.4-10.2) mg/dL Magnesium 2.3 (1.6-2.6) mg/dL Total Bilirubin 1.4 H (0.0-1.0) mg/dL AST 26 (5-31) U/L ALT 29 (0-31) U/L Alkaline Phosphatase 55 (39-117) U/L Total Protein 7.6 (6.5-8.0) g/dL Albumin 4.3 (3.5-5.0) g/dL Lipase 36 (8-78) U/L Influenza Type A (PCR) NEGATIVE (Negative) Influenza Type B (PCR) NEGATIVE (Negative) RSV RNA Qual (PCR) NEGATIVE (Negative) SARS-CoV-2 RNA (RT-PCR) NEGATIVE (Negative) External Record Review External record reviewed: Inpatient record, Office record and Outpatient record Prescription Management I considered prescription management with: Other Discharge Plan Discharge Clinical Impression: Gastroenteritis Patient Disposition: Home, Self-Care Instructions: Gastroenteritis (DC), Acute Nausea and Vomiting (ED) Additional Instructions: You have been evaluated in the emergency department today for nausea and vomiting. Your evaluation suggests that your symptoms are most likely due to a viral illness which will improve on it's own with rest and fluids. Remember to drink plenty of fluids at home. You are being prescribed prochlorperazine which you can use as per the prescription instructions for nausea. DO NOT TAKE THIS IN COMBINATION WITH ONDANSETRON OR METOCLOPRAMIDE. Please follow up with your primary care provider within two days. Return to the emergency department if you experience worsening or uncontrolled pain, inability to tolerate fluids by mouth, difficulty breathing, fevers 100.4? F or greater, recurrent vomiting, or any other concerning symptoms. Prescriptions: New prochlorperazine 25 mg suppository 25 mg PA Q12H PRN (Reason: nausea and vomiting) Qty: 12 0RF No Action sumatriptan succinate 50 mg tablet 50 mg PO Q2-4H PRN (Reason: migraine headache) Qty: 10 0RF Rx Instructions: do not exceed 4 doses per 24 hrs ketorolac 10 mg tablet 10 mg PO TID PRN (Reason: pain) 5 Days Qty: 7 0RF Rx Instructions: Do not take ibuprofen/Motrin with medication, only use sumatriptan or Tylenol if needed ondansetron HCl [Zofran] 4 mg tablet 4 mg PO Q6H PRN (Reason: nausea and vomiting) Qty: 10 0RF zolmitriptan [Zomig] 2.5 mg tablet 2.5 mg PO Q2-4H PRN (Reason: migraine headache) Qty: 10 0RF Rx Instructions: do not exceed 4 doses per 24 hrs ondansetron HCl [Zofran] 4 mg tablet 4 mg PO Q8H PRN (Reason: nausea and vomiting) Qty: 14 0RF qitzygqvii-rygllyufspudd-wcjl [Fioricet] 50-300-40 mg capsule 1 cap PO Q4-6H PRN (Reason: headache ) Qty: 20 0RF bigjpykgjc-cmmeufrzqrfgj-gujz [Fioricet] 50-300-40 mg capsule 1 cap PO Q6H PRN (Reason: pain) 5 Days Qty: 20 0RF metoclopramide HCl [Reglan] 10 mg tablet 10 mg PO Q6H PRN (Reason: nausea and vomiting) 4 Days Qty: 12 0RF ketorolac 10 mg tablet 10 mg PO QID PRN (Reason: pain) 5 Days Qty: 20 0RF Rx Instructions: received toradol 3mg IV in the ED Stand Alone Forms: Work/School Release Print Language: Lithuanian
[2024-10-10] MEDS: 0.9 % Sodium Chloride 1,000 ML 999 ML IV (12:06)
[2024-10-10] MEDS: diphenhydrAMINE HCL 50 MG/ML VIAL 25 MG IVPUSH (12:12)
[2024-10-10] MEDS: Metoclopramide HCl 10 MG/2 ML VIAL IVPUSH (12:13)
[2024-10-10 12:49] LABS: Influenza A PCR NEGATIVE (Negative); Influenza B PCR NEGATIVE (Negative); Resp Syncy Virus RNA Qual PCR NEGATIVE (Negative); SARS COV2 PCR INHOUSE NEGATIVE (Negative)
--- NOTE | 2024-10-10 13:12 | MHC.EDTECH ---
This tech answered call hendrix. Patient asking for ice pack for bruising on forehead and headache. Ice pack applied. All current needs met.
[2024-10-10 13:49] VITALS: BP 102/57; PULSE 92; RESP 18; TEMP 37.1; O2SAT 100
[2024-10-10] MEDS: Prochlorperazine Edisylate 10 MG/2 ML VIAL IVPUSH (14:41)
[2024-10-10 15:36] VITALS: BP 122/83; PULSE 99; RESP 16; TEMP 36.8; O2SAT 98
== END 2024-10-10 15:39 | disposition home or self-care (01) ==
PROVIDERS: Registered Nurse Emergency; Emergency Provider Emergency Medicine Emergency Medical Services; PCP Internal Medicine
DX: K52.9 Noninfective gastroenteritis and colitis, unspecified (principal); R11.2 Nausea with vomiting, unspecified; Z03.818 Encounter for observation for suspected exposure to other biological agents ruled out; E11.9 Type 2 diabetes mellitus without complications; Z79.899 Other long term (current) drug therapy
CPT/HCPCS: 0241U; 36415; 80053; 83690; 83735; 85025; 96361; 96374; 96375; 99284; J0737; J1200; J2765